=== PATIENT | female | born 1940 | race Caucasian/White ===

== ENCOUNTER 2018-10-12 08:43 | Day surgery (SDC) | payer MEDICARE, OTHER | END 2018-10-12 23:00 | disposition home or self-care (01) | LOC: MOI US 08:43 → MOI MAM 09:00 → MOI US 23:00 | DX: C50.911 Malignant neoplasm of unspecified site of right female breast (principal); Z17.0 Estrogen receptor positive status [ER+] | CPT/HCPCS: 19083; 77065; 88305; 88342; 88360; A4648; G0279 ==

== ENCOUNTER 2019-01-31 08:02 | Day surgery (SDC) | payer MEDICARE, OTHER ==
[~2019-01-31] VITALS: Ht 160 cm; Wt 69.7 kg
[~2019-01-31 08:02] MED LIST: IBUP400 PO; VITAMINS PO; Zocor20 MG PO; [UNRECOGNIZED DRUG - OTHER] PO
--- NOTE | 2019-01-31 09:53 | NUR ---
Ambulatory in Day Surgery History, Chart, Medications and Allergies reviewed before start of procedure. Lungs clear T/O to Auscultation. Patient confirms NPO status and agrees with scheduled surgery. Pre-Op teaching done. Pt verbalizes understanding. Patient States Post-Procedure ride home has been arranged.
--- NOTE | 2019-01-31 13:42 | NUR ---
RECEIVED REPORT FROM FACTORY FOCUS TECHNICIAN (SHABNAM). PT OPENED EYES AND STATED SHE WAS FEELING "SICK". RN ASSISTED PT SITTING UP. PILE OF WARM BLANKETS PLACED ON PT BC SHE WAS COLD IN PACU. FACTORY FOCUS TECHNICIAN LEFT DEPT. RN ASSUMING CARE OF PT. PT HAS BACK PAIN SO RN ASSISTED PT INTO A MORE COMFORTABLE POSITION. RN ASSESSED BILATERAL CHEST DRSG CDI (GAUZE/TAPE). TWO LUCIO DRAINS NOTED AND PATENT DRAINING BLOOD. BREAST BINDER IN PLACE. PT IS DRINKING MEREDITH MIST TO SEE IF HELPS STOMACH. PT STATES "I AM VERY DRY" WILL CONTINUE TO MONITOR PT.
--- NOTE | 2019-01-31 13:58 | NUR ---
FAMILY AT BEDSIDE TALKING WITH PT.
--- NOTE | 2019-01-31 14:09 | NUR ---
REPORT GIVEN TO JASON WHITE SHE WILL ASSUME CARE OF PT.
--- NOTE | 2019-01-31 14:50 | NUR ---
RESUMMED CARE OF PT FROM JASON WHITE.
--- NOTE | 2019-01-31 15:20 | NUR ---
PT DOING WELL VERY COLD. RN PLACED HEATER ON PT. WANTS RN TO GO OVER D/C INSTRUCTIONS WITH HER DTR. Discharge instructions reviewed with patient. Patient verbalizes understanding. Copy given to patient to take home. DTR HAS NO QUESTIONS OR CONCERNS. RN SHOWED PT/DTR THE LUCIO DRAINS CARE OF AND HOW TO EMPTY. RN EMPTIED DRAINS. PT READY TO GO HOME. LUCIO DRAIN CARE INFO SENT HOME WITH PT. DTR WENT TO [facility] TO DROP OFF RX. PT HAS CUPS TO EMPTY DRAIN OUTPUT INTO.
--- NOTE | 2019-01-31 15:25 | NUR ---
PT GOT DRESSED HAS ALLL PERSONAL BELONGINGS. EYE GLASSES ON PT. PT SAT IN CHAIR AND THREW UP A SMALL AMT OF YELLOW OUTPUT INTO BAG. PT THEN LOOKED UP AT RN AND SAID "I FEEL BETTER". PT STATES WANTS TO GO HOME AND SLEEP. Patient States Post-Procedure ride home has been arranged. Discharged via wheelchair to private car for ride home.
== END 2019-01-31 23:33 | disposition home or self-care (01) ==
LOC: ORSCMMR 08:02 → NM 08:02 → ORSCMMR 08:03 → NM 09:00 → ORSCMMR 23:33
PROVIDERS: Surgery
PROC: 07B50ZX Excision of Right Axillary Lymphatic, Open Approach, Diagnostic (ICD-10-PCS; principal; 2019-01-31 10:00)
PROC: 0HBV0ZZ Excision of Bilateral Breast, Open Approach (ICD-10-PCS; principal; 2019-01-31 10:00)
DX: C50.811 Malignant neoplasm of overlapping sites of right female breast (principal); Z40.01 Encounter for prophylactic removal of breast; D36.0 Benign neoplasm of lymph nodes; E78.5 Hyperlipidemia, unspecified; Z79.899 Other long term (current) drug therapy; Z87.891 Personal history of nicotine dependence
CPT/HCPCS: 38792; 88307; 88342; A9520; J0690; J1100; J1885; J2370; J2405; J2704; J2710; J3010; J7120; Q9968

== ENCOUNTER → 2024-06-26 | Outpatient (CLI) | payer MEDICARE, OTHER ==
[2024-06-26 11:44] LABS: Albumin, Blood 3.5 g/dL (3.4-5.0); Albumin/Globulin Ratio 1.1 (0.8-1.8); Bilirubin, Total 0.7 mg/dL (0.1-1.0); Bun/Creatinine Ratio 11.5 (12.0-20.0); Calcium, Blood 8.9 mg/dL (8.5-10.1); Creatinine, Blood 0.7 mg/dL (0.40-1.00); Globulin, Blood 3.1 g/dL (2.2-4.0); Potassium, Blood 3.7 mmol/L (3.5-5.5); Total Protein, Blood 6.6 g/dL (6.4-8.2)
== END ==
LOC: LAB SHORT 09:45 → LAB 09:45
PROVIDERS: Internal Medicine Hematology & Oncology
DX: C50.919 Malignant neoplasm of unspecified site of unspecified female breast (principal)
CPT/HCPCS: 80053

== ENCOUNTER → 2025-05-26 | Outpatient (CLI) | payer MEDICARE, OTHER ==
[2025-05-26 18:17] LABS: BASOPHILS ABSOLUTE AUTO 0.03 K/mm3 (0.00-0.23); BASOPHILS PERCENT AUTO 1 % (0-2); EOSINOPHILS ABSOLUTE AUTO 0.23 K/mm3 (0.00-0.68); EOSINOPHILS PERCENT AUTO 5 % (0-6); Hematocrit 40.3 % (33.0-51.0); Hemoglobin 12.6 g/dL (11.5-16.0); IMMATURE GRAN ABSOLUTE AUTO 0.00 K/mm3 (0.00-0.10); IMMATURE GRAN PERCENT AUTO 0 % (0-1); LYMPHOCYTES ABSOLUTE AUTO 1.45 K/mm3 (0.84-5.20); LYMPHOCYTES PERCENT AUTO 34 % (21-46); MONOCYTES ABSOLUTE AUTO 0.27 K/mm3 (0.16-1.47); MONOCYTES PERCENT AUTO 6 % (4-13); Mean Corpuscular HGB Conc 31.3 g/dL (31.5-36.5); Mean Corpuscular Volume 97 fL (80-100); NEUTROPHILS ABSOLUTE AUTO 2.33 K/mm3 (1.96-9.15); NEUTROPHILS PERCENT AUTO 54 % (41-73); NRBC ABSOLUTE 0.00 K/mm3 (0.00-0.02); NRBC Auto 0.0 /100 WBC (0.0-0.2); Platelet Count 200 K/mm3 (150-400); RDW Coefficient Variation 13.8 % (11.7-14.2); RDW Standard Deviation 49.7 fL (35.1-46.3)
[2025-05-26 18:28] LABS: LDL/HDL RATIO 0.9; Very Low Density Lipoprot Chol 20 mg/dL (6-32)
[2025-05-26 18:29] LABS: Alanine Aminotransfer (ALT/SGP 20 U/L (12-78); Albumin, Blood 3.9 g/dL (3.4-5.0); Albumin/Globulin Ratio 1.2 (0.8-1.8); Anion Gap 7 mmol/L (3-11); Aspartate Aminotrans (AST/SGOT 16 U/L (12-37); Bilirubin, Total 0.6 mg/dL (0.1-1.0); Blood Urea Nitrogen 9 mg/dL (8-24); CHOL/HDL RATIO 2.2; CO2, Blood 26 mmol/L (21-32); Calcium, Blood 9.1 mg/dL (8.5-10.1); Chloride, Blood 109 mmol/L (98-108); Cholesterol 127 mg/dL (50-200); Creatinine, Blood 0.70 mg/dL (0.40-1.00); Globulin, Blood 3.3 g/dL (2.2-4.0); Glucose, Blood 91 mg/dL (70-99); HDL Cholesterol 57 mg/dL (>39); Low Density Lipoprotein Chol 50 mg/dL (0-110); Potassium, Blood 3.8 mmol/L (3.5-5.5); Sodium, Blood 138 mmol/L (136-145); Total Protein, Blood 7.2 g/dL (6.4-8.2); Triglycerides 101 mg/dL (30-160)
== END ==
LOC: LAB SHORT 07:57 → LAB 07:57
PROVIDERS: Student in an Organized Health Care Education/Training Program
DX: E78.2 Mixed hyperlipidemia (principal); K21.9 Gastro-esophageal reflux disease without esophagitis
CPT/HCPCS: 80053; 80061; 85025